=== PATIENT | female | born 1945 | race Caucasian/White ===

== ENCOUNTER → 2018-07-24 | Outpatient (CLI) | payer OTHER, MEDICARE ==
[~2018-07-24] MED LIST: ACET500T68 PO; CALC600T63 PO; DIPH-740 PO; ESTR0.5T16 PO; FLUT16SP19 NS; FURO20TA19 PO; GABA-533 PO; GLUC100026 PO; HYDR-2966 PO; HYDR-317 PO; IBUP200C74 PO; IPRA15SP7 NS; LEVO150T78 PO; LORA-629 PO; METH1TAB PO; MULT-27 PO; PEG4000S21 PO; PHEN95TA10 PO; POTA20TA94 PO; SPIR25TA80 PO; TRIA-204 PO
--- NOTE | 2018-07-25 08:36 | RADIOLOGY IMAGING REPORT ---
FACILITY: [facility] PATIENT NAME: PRADEEP COYLE : [id number] MR: [id number] V: [id number] EXAM DATE: ORDERING PHYSICIAN: JOSE ALVARADO TECHNOLOGIST: Zuly Almazan PROCEDURE:BILATERAL DIGITAL SCREENING MAMMOGRAM WITH CAD ASSISTED INTERPRETATION & 3D TOMOSYNTHESIS COMPARISON:Prior mammograms 12/05/13, 05/14/12. INDICATIONS:SCREENING FINDINGS: The breasts are heterogeneously dense which can obscure small masses. The parenchymal pattern has remained stable allowing for difference in mammographic technique & patient positioning. DIAGNOSTIC CATEGORY 1--NEGATIVE. RECOMMENDATIONS: ROUTINE MAMMOGRAM AND CLINICAL EVALUATION. IMPRESSION: BIRADS 1: Negative. No significant abnormality is seen. Dictated by: Donna Hay M.D. on 07/24/2018 at 9:52 Transcribed by: PATI on 07/24/2018 at 9:58 Approved by: Donna Hay M.D. on 07/25/2018 at 8:35 [facility]
== END ==
LOC: MAMO 01:14
PROVIDERS: ATTEND Family Medicine
DX: Z12.31 Encounter for screening mammogram for malignant neoplasm of breast (principal)
CPT/HCPCS: 77063; 77067